=== PATIENT | female | born 1990 | race Caucasian/White ===

== ENCOUNTER 2017-10-27 10:22 | Emergency (ER) | payer OTHER, MEDICAID ==
[2017-10-27] MEDS: NS 1,000 ML IV (10:53)
[2017-10-27] MEDS: ONDANSETRON 4MG/2ML VIAL (J2405) IV (10:53)
[2017-10-27] MEDS: MORPHINE 4 MG/ML 1ML VIAL/SYRINGE (J2270) IV ×2 (10:53→12:13)
[2017-10-27 10:54] LABS: BASO # 0.1 10^3/uL (0.0-0.2); BASO % 0.6 % (0.0-1.0); EOS # 0.1 10^3/uL (0.0-0.50); EOS % 0.6 % (0.0-3.0); HEMATOCRIT 38.7 % (36.0-47.0); HEMOGLOBIN 13.6 g/dl (12.0-15.5); IMMATURE GRANULOCYTE % 0.3 % (0-3.0); LYMPH # 1.3 10^3/uL (1.5-6.5); LYMPH % 14.5 % (24.0-44.0); MEAN CORPUSCULAR HEMOGLOBIN 32.6 pg (27.0-33.0); MEAN CORPUSCULAR HGB CONC 35.1 g/dl (32.0-36.5); MEAN CORPUSCULAR VOLUME 92.8 fl (80.0-96.0); MONO # 0.6 10^3/uL (0.0-0.8); MONO % 6.6 % (0.0-5.0); NEUTROPHILS % 77.4 % (36.0-66.0); PLATELET COUNT, AUTOMATED 190 10^3/uL (150-450); RED BLOOD COUNT 4.17 10^6/uL (4.00-5.40); RED CELL DISTRIBUTION WIDTH 11.9 % (11.5-14.5)
[2017-10-27 11:04] LABS: AMORPHOUS SEDIMENT RFX SMALL (NEGATIVE); KETONE, URINE AUTO RFX NEGATIVE (NEGATIVE); LEUKOCYTE ESTERASE UR AUTO RFX 3+ (NEGATIVE); MUCUS, URINE RFX SMALL (NEGATIVE); NITRITE, URINE AUTO RFX POSITIVE (NEGATIVE); RBC, URINE AUTO RFX 8 /HPF (0-3); SPECIFIC GRAVITY UR AUTO RFX 1.014 (1.002-1.035); SQUAM EPITHELIAL CELL UR AURFX 6 /HPF (0-6); WBC, URINE AUTO RFX 67 /HPF (0-3); YEAST LIKE CELL URINE AUTO RFX MODERATE
[2017-10-27 11:19] LABS: ALBUMIN 3.7 GM/DL (3.2-5.2); ALBUMIN/GLOBULIN RATIO 1.16 (1.00-1.93); ALKALINE PHOSPHATASE 65 U/L (45-117); ALT/SGPT 12 U/L (12-78); ANION GAP 7 MEQ/L (8-16); AST/SGOT 11 U/L (7-37); BILIRUBIN,DIRECT 0.1 MG/DL (0.0-0.2); BILIRUBIN,TOTAL 0.3 MG/DL (0.2-1.0); BLOOD UREA NITROGEN 9 MG/DL (7-18); CALCIUM LEVEL 8.4 MG/DL (8.5-10.1); CARBON DIOXIDE LEVEL 26 MEQ/L (21-32); CHLORIDE LEVEL 108 MEQ/L (98-107); CREATININE FOR GFR 0.65 MG/DL (0.55-1.30); GLOMERULAR FILTRATION RATE > 60.0 (>60); GLUCOSE, FASTING 93 MG/DL (70-100); LIPASE 161 U/L (73-393); POTASSIUM SERUM 3.9 MEQ/L (3.5-5.1); SODIUM LEVEL 141 MEQ/L (136-145); TOTAL PROTEIN 6.9 GM/DL (6.4-8.2)
[2017-10-27] MEDS: CIPROFLOXACIN 500 MG TAB PO (13:36)
== END 2017-10-27 13:39 | disposition home or self-care (01) ==
LOC: M ED 10:22
DX: N39.0 Urinary tract infection, site not specified (principal); R11.0 Nausea; R93.8 Abnormal findings on diagnostic imaging of other specified body structures; Z87.440 Personal history of urinary (tract) infections; K58.9 Irritable bowel syndrome, unspecified; Z88.0 Allergy status to penicillin; Z97.5 Presence of (intrauterine) contraceptive device
CPT/HCPCS: J2270

== ENCOUNTER 2018-05-19 09:37 | Emergency (ER) | payer OTHER ==
[2018-05-19] MEDS: NS 1,000 ML IV (10:31)
[2018-05-19] MEDS: MORPHINE 4 MG/ML 1ML VIAL/SYRINGE (J2270) IV (10:31)
[2018-05-19] MEDS: ONDANSETRON 4MG/2ML VIAL (J2405) IV (10:31)
[2018-05-19 10:35] LABS: AMORPHOUS SEDIMENT RFX SMALL (NEGATIVE); BASO % 0.3 % (0.0-1.0); EOS % 0.3 % (0.0-3.0); HEMATOCRIT 44.9 % (36.0-47.0); HEMOGLOBIN 15.5 g/dl (12.0-15.5); IMMATURE GRANULOCYTE % 0.3 % (0-3.0); KETONE, URINE AUTO RFX NEGATIVE (NEGATIVE); LEUKOCYTE ESTERASE UR AUTO RFX 1+ (NEGATIVE); LYMPH # 0.9 10^3/uL (1.5-6.5); LYMPH % 7.4 % (24.0-44.0); MEAN CORPUSCULAR HEMOGLOBIN 32.5 pg (27.0-33.0); MEAN CORPUSCULAR HGB CONC 34.5 g/dl (32.0-36.5); MEAN CORPUSCULAR VOLUME 94.1 fl (80.0-96.0); MONO # 0.5 10^3/uL (0.0-0.8); MUCUS, URINE RFX SMALL (NEGATIVE); NEUTROPHILS # 10.2 10^3/uL (1.8-7.7); NEUTROPHILS % 87.7 % (36.0-66.0); NITRITE, URINE AUTO RFX NEGATIVE (NEGATIVE); PLATELET COUNT, AUTOMATED 228 10^3/uL (150-450); RBC, URINE AUTO RFX 1 /HPF (0-3); RED BLOOD COUNT 4.77 10^6/uL (4.00-5.40); RED CELL DISTRIBUTION WIDTH 11.9 % (11.5-14.5); SPECIFIC GRAVITY UR AUTO RFX 1.026 (1.002-1.035); SQUAM EPITHELIAL CELL UR AURFX 4 /HPF (0-6); WBC, URINE AUTO RFX 6 /HPF (0-3); WHITE BLOOD COUNT 11.6 10^3/uL (4.0-10.0)
[2018-05-19 11:06] LABS: ALBUMIN 4.4 GM/DL (3.2-5.2); ALBUMIN/GLOBULIN RATIO 1.33 (1.00-1.93); ALKALINE PHOSPHATASE 59 U/L (45-117); ALT/SGPT 15 U/L (12-78); ANION GAP 6 MEQ/L (8-16); AST/SGOT 11 U/L (7-37); BILIRUBIN,DIRECT 0.2 MG/DL (0.0-0.2); BILIRUBIN,TOTAL 0.7 MG/DL (0.2-1.0); BLOOD UREA NITROGEN 11 MG/DL (7-18); CARBON DIOXIDE LEVEL 28 MEQ/L (21-32); CHLORIDE LEVEL 104 MEQ/L (98-107); GLOMERULAR FILTRATION RATE > 60.0 (>60); GLUCOSE, FASTING 92 MG/DL (70-100); LIPASE 90 U/L (73-393); POTASSIUM SERUM 3.5 MEQ/L (3.5-5.1); SODIUM LEVEL 138 MEQ/L (136-145); TOTAL PROTEIN 7.7 GM/DL (6.4-8.2)
[2018-05-19] MEDS ORDERED: ISOVUE-370 76% 100ML VIAL (Q9967) As Ordered (11:16)
[2018-05-19] MEDS: METOCLOPRAMIDE INJ 10MG/2ML VIAL (J2765) IV (12:09)
== END 2018-05-19 12:35 | disposition home or self-care (01) ==
LOC: M ED 09:37
DX: K52.9 Noninfective gastroenteritis and colitis, unspecified (principal); N83.202 Unspecified ovarian cyst, left side
CPT/HCPCS: J2270

== ENCOUNTER → 2019-02-10 | Outpatient (CLI) | payer OTHER ==
[~2019-02-10] MED LIST: ANUS2.5C2 PR; CIPR-249 PO; COLA50CA3 PO; HYDR-3715 PO; IBUP600T26 PO; MAPA500T17 PO; MILK10SU PO; MIRE1IUD IU; MOTR200T44 PO; PRENTAB74 PO; TYLE325T5 PO; ZOFR4TAB14 PO
[2019-02-10 17:07] LABS: BASO # 0.1 10^3/uL (0.0-0.2); EOS # 0.2 10^3/uL (0.0-0.50); EOS % 2.9 % (0.0-3.0); HEMATOCRIT 45.2 % (36.0-47.0); LYMPH # 2.8 10^3/uL (1.5-6.5); LYMPH % 36.9 % (24.0-44.0); MEAN CORPUSCULAR HEMOGLOBIN 32.2 pg (27.0-33.0); MEAN CORPUSCULAR HGB CONC 33.2 g/dl (32.0-36.5); MONO # 0.7 10^3/uL (0.0-0.8); MONO % 9.2 % (0.0-5.0); NEUTROPHILS # 3.8 10^3/uL (1.8-7.7); NEUTROPHILS % 49.7 % (36.0-66.0); PLATELET COUNT, AUTOMATED 266 10^3/uL (150-450); RED BLOOD COUNT 4.66 10^6/uL (4.00-5.40); WHITE BLOOD COUNT 7.7 10^3/uL (4.0-10.0)
[2019-02-10 17:22] LABS: ALBUMIN 4.1 GM/DL (3.2-5.2); ALT/SGPT 17 U/L (12-78); BILIRUBIN,TOTAL 0.6 MG/DL (0.2-1.0); BLOOD UREA NITROGEN 14 MG/DL (7-18); CARBON DIOXIDE LEVEL 30 MEQ/L (21-32); CHLORIDE LEVEL 103 MEQ/L (98-107); CREATININE FOR GFR 0.78 MG/DL (0.55-1.30); GLOMERULAR FILTRATION RATE > 60.0 (>60); GLUCOSE, FASTING 61 MG/DL (70-100); POTASSIUM SERUM 4.3 MEQ/L (3.5-5.1); SODIUM LEVEL 140 MEQ/L (136-145); TOTAL PROTEIN 7.4 GM/DL (6.4-8.2)
[2019-02-10 21:09] LABS: CHLAMYDIA DNA AMPLIFICATION NEGATIVE (NEGATIVE); GC DNA AMPLIFICATION NEGATIVE (NEGATIVE)
--- NOTE | 2019-02-11 08:16 | REP ---
REASON: Dysuria. COMPARISON: Abdominal series of 12/14/2010. FINDINGS: KUB shows the intestinal gas pattern to be nonspecific. The organ silhouettes insofar as delineated are unremarkable. There is no evidence of free intraperitoneal air. There is a pelvic radiodensity consistent with an IUD. IMPRESSION: Nonspecific. Electronically Signed by Evan Fraser DO 02/11/2019 09:45 A
== END ==
LOC: M WUC 14:56
PROVIDERS: ATTEND Physician Assistant
DX: R30.0 Dysuria (principal); R10.30 Lower abdominal pain, unspecified; Z97.5 Presence of (intrauterine) contraceptive device

== ENCOUNTER → 2019-06-10 | Outpatient (REF) | payer OTHER | LOC: M LAB REF 16:10 | PROVIDERS: ATTEND Physician Assistant | DX: N39.0 Urinary tract infection, site not specified (principal) ==

== ENCOUNTER 2019-09-03 15:17 | Emergency (ER) | payer OTHER ==
[~2019-09-03] VITALS: Ht 165.1 cm; Wt 57.0 kg
[2019-09-03 16:35] LABS: BASO # 0.1 10^3/uL (0.0-0.2); BASO % 0.8 % (0.0-1.0); EOS # 0.3 10^3/uL (0.0-0.5); EOS % 3.9 % (0.0-3.0); HEMATOCRIT 41.4 % (36.0-47.0); HEMOGLOBIN 13.8 g/dl (12.0-15.5); LYMPH # 2.5 10^3/uL (1.5-5.0); LYMPH % 35.4 % (24.0-44.0); MEAN CORPUSCULAR HEMOGLOBIN 31.6 pg (27.0-33.0); MEAN CORPUSCULAR HGB CONC 33.3 g/dl (32.0-36.5); MEAN CORPUSCULAR VOLUME 94.7 fl (80.0-96.0); MONO # 0.4 10^3/uL (0.0-0.8); MONO % 5.2 % (0.0-5.0); NEUTROPHILS # 3.9 10^3/uL (1.5-8.5); NEUTROPHILS % 54.4 % (36.0-66.0); PLATELET COUNT, AUTOMATED 246 10^3/uL (150-450); RED BLOOD COUNT 4.37 10^6/uL (4.00-5.40); WHITE BLOOD COUNT 7.1 10^3/uL (4.0-10.0)
[2019-09-03 16:59] LABS: ERYTHROCYTE SEDIMENTATION RATE 1 mm/hr (0-20)
[2019-09-03 17:18] VITALS: BP 134/78
== END 2019-09-03 17:10 | disposition home or self-care (01) ==
LOC: M ED 15:17
DX: N64.4 Mastodynia (principal); Z97.5 Presence of (intrauterine) contraceptive device; Z88.0 Allergy status to penicillin

== ENCOUNTER 2019-11-26 11:51 | Emergency (ER) | payer OTHER ==
[~2019-11-26] VITALS: Ht 165.1 cm; Wt 56.5 kg
[2019-11-26 12:37] LABS: BASO # 0.1 10^3/uL (0.0-0.2); BASO % 0.7 % (0.0-1.0); EOS # 0.2 10^3/uL (0.0-0.5); EOS % 2.2 % (0.0-3.0); HEMATOCRIT 40.2 % (36.0-47.0); HEMOGLOBIN 13.6 g/dl (12.0-15.5); LYMPH % 29.3 % (24.0-44.0); MEAN CORPUSCULAR HEMOGLOBIN 32.2 pg (27.0-33.0); MEAN CORPUSCULAR HGB CONC 33.8 g/dl (32.0-36.5); MONO # 0.5 10^3/uL (0.0-0.8); MONO % 7.2 % (0.0-5.0); NEUTROPHILS # 4.1 10^3/uL (1.5-8.5); NEUTROPHILS % 60.3 % (36.0-66.0); PLATELET COUNT, AUTOMATED 215 10^3/uL (150-450); RED BLOOD COUNT 4.23 10^6/uL (4.00-5.40); WHITE BLOOD COUNT 6.9 10^3/uL (4.0-10.0)
[2019-11-26 12:58] LABS: ALBUMIN 3.6 GM/DL (3.2-5.2); BILIRUBIN,DIRECT 0.1 MG/DL (0.0-0.2); BILIRUBIN,TOTAL 0.5 MG/DL (0.2-1.0); TOTAL PROTEIN 6.6 GM/DL (6.4-8.2)
[2019-11-26] MEDS ORDERED: KETOROLAC 30 MG/ML 1ML VIAL IV ONE (13:00)
[2019-11-26] MEDS ORDERED: ISOVUE-370 76% 100ML VIAL As Ordered ONE (13:32)
[2019-11-26] MEDS ORDERED: PHENAZOPYRIDINE 100 MG TAB PO ONE (14:30)
[2019-11-26] MEDS ORDERED: CIPROFLOXACIN 500MG TABLET PO ONE (14:30)
[2019-11-26] MEDS ORDERED: PYRI1TAB5 PO (14:32)
[2019-11-26] MEDS ORDERED: KETO10TAB PO (14:32)
[2019-11-26] MEDS ORDERED: CIPR-249 PO (14:32)
--- NOTE | 2019-11-26 14:42 | REP ---
CT ABDOMEN AND PELVIS WITH IV CONTRAST: TECHNIQUE: Axial contrast-enhanced images from the lung bases to the pubic symphysis using 100 mL Isovue-370 intravenous contrast material with multiplanar reformations. Visualized lung bases are clear. Liver, spleen, adrenals, pancreas and kidneys are grossly unremarkable. Gallbladder is grossly unremarkable. There is no abdominal aortic aneurysm. There is no adenopathy. There is no free air. No bowel wall thickening is seen. The appendix is normal. IUD is seen in the uterus. No adnexal mass is seen. There is mild free fluid in the pelvis which is likely physiologic in nature. Urinary bladder is mildly distended and grossly unremarkable. IMPRESSION: Mild free fluid in the pelvis is likely physiologic in nature. Normal appendix. IUD in the uterus. No other acute finding. Electronically Signed by Navdeep Calvo MD 11/26/2019 05:05 P
[2019-11-26 15:01] VITALS: BP 116/58
== END 2019-11-26 15:02 | disposition home or self-care (01) ==
LOC: M ED 11:51
DX: N30.00 Acute cystitis without hematuria (principal); Z87.440 Personal history of urinary (tract) infections; K58.9 Irritable bowel syndrome, unspecified; N93.8 Other specified abnormal uterine and vaginal bleeding; F32.9 Major depressive disorder, single episode, unspecified; Z88.0 Allergy status to penicillin
CPT/HCPCS: 36415; 74177; 80047; 80076; 81001; 83690; 84702; 85025; 87088; 87186; 96374; 99284; J1885; Q9967

== ENCOUNTER 2019-11-28 10:46 | Emergency (ER) | payer OTHER ==
[~2019-11-28] VITALS: Ht 165.1 cm; Wt 57.5 kg
[~2019-11-28 10:46] MED LIST changes: +KETO10TAB PO; +PYRI1TAB5 PO
[2019-11-28 11:25] LABS: BASO % 0.8 % (0.0-1.0); EOS # 0.1 10^3/uL (0.0-0.5); EOS % 2.2 % (0.0-3.0); HEMATOCRIT 38.6 % (36.0-47.0); HEMOGLOBIN 12.8 g/dl (12.0-15.5); LYMPH # 1.6 10^3/uL (1.5-5.0); LYMPH % 31.7 % (24.0-44.0); MEAN CORPUSCULAR HEMOGLOBIN 31.9 pg (27.0-33.0); MEAN CORPUSCULAR HGB CONC 33.2 g/dl (32.0-36.5); MEAN CORPUSCULAR VOLUME 96.3 fl (80.0-96.0); MONO # 0.3 10^3/uL (0.0-0.8); MONO % 6.7 % (0.0-5.0); NEUTROPHILS # 2.9 10^3/uL (1.5-8.5); NEUTROPHILS % 58.2 % (36.0-66.0); PLATELET COUNT, AUTOMATED 186 10^3/uL (150-450); RED BLOOD COUNT 4.01 10^6/uL (4.00-5.40); WHITE BLOOD COUNT 5.1 10^3/uL (4.0-10.0)
[2019-11-28 11:58] LABS: ALBUMIN 3.4 GM/DL (3.2-5.2); ALT/SGPT 27 U/L (12-78); BILIRUBIN,DIRECT < 0.1 MG/DL (0.0-0.2); BILIRUBIN,TOTAL 0.5 MG/DL (0.2-1.0); BLOOD UREA NITROGEN 11 MG/DL (7-18); CALCIUM LEVEL 8.3 MG/DL (8.5-10.1); CARBON DIOXIDE LEVEL 28 MEQ/L (21-32); CHLORIDE LEVEL 110 MEQ/L (98-107); CREATININE FOR GFR 0.62 MG/DL (0.55-1.30); GLOMERULAR FILTRATION RATE > 60.0 (>60); GLUCOSE, FASTING 81 MG/DL (70-100); LIPASE 78 U/L (73-393); POTASSIUM SERUM 3.8 MEQ/L (3.5-5.1); SODIUM LEVEL 140 MEQ/L (136-145); TOTAL PROTEIN 6.2 GM/DL (6.4-8.2)
[2019-11-28] MEDS: GI COCKTAIL 50ML BTL(HYOSCYAMINE/MAALOX/LIDOCAINE VISCOUS)(1:3:1) PO ONE (12:24)
[2019-11-28 14:46] VITALS: BP 92/58
[2019-11-28 15:42] LABS: CK-MB VALUE MASS < 1.0 NG/ML (<3.6); CPK CREATINE PHOSPHOKINASE 51 U/L (26-192); MB/CK RELATIVE INDEX 1.96 (< OR =4); TROPONIN I < 0.02 NG/ML (< 0.10)
[2019-11-28] MEDS ORDERED: OMEP-218 PO (15:50)
--- NOTE | 2019-11-29 07:18 | REP ---
RIGHT UPPER QUADRANT ULTRASOUND: Real-time sonographic evaluation of right upper quadrant performed. Gallbladder demonstrates no evidence of intraluminal sludge or calculi, wall thickening, or pericholecystic fluid. Gallbladder is mildly contracted as the patient is not n.p.o. There is no intrahepatic or extrahepatic biliary dilatation, common bile duct measuring 3 mm. Liver and pancreas demonstrate no gross abnormality. Pancreas is not well seen due to overlying bowel gas. Right kidney demonstrates no hydronephrosis with normal size 12.2 cm in length. IMPRESSION: Negative right upper quadrant ultrasound. Electronically Signed by Navdeep Calvo MD 11/29/2019 09:49 A
--- NOTE | 2019-11-29 19:43 | ECGEPIP ---
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
== END 2019-11-28 16:01 | disposition home or self-care (01) ==
LOC: M ED 10:46
DX: K21.9 Gastro-esophageal reflux disease without esophagitis (principal); I44.0 Atrioventricular block, first degree; K58.9 Irritable bowel syndrome, unspecified; F32.9 Major depressive disorder, single episode, unspecified; Z88.1 Allergy status to other antibiotic agents; Z79.899 Other long term (current) drug therapy

== ENCOUNTER 2020-05-04 18:57 | Emergency (ER) | payer OTHER ==
[~2020-05-04] VITALS: Ht 165.1 cm; Wt 53.6 kg
[~2020-05-04 18:57] MED LIST changes: +OMEP-218 PO
[2020-05-04] MEDS ORDERED: NS 1,000 ML IV ONE (20:45)
[2020-05-04 20:54] LABS: BASO % 0.6 % (0.0-1.0); EOS # 0.2 10^3/uL (0.0-0.5); EOS % 2.3 % (0.0-3.0); HEMATOCRIT 40.8 % (36.0-47.0); HEMOGLOBIN 13.3 g/dl (12.0-15.5); LYMPH # 2.7 10^3/uL (1.5-5.0); LYMPH % 41.6 % (24.0-44.0); MEAN CORPUSCULAR HEMOGLOBIN 30.9 pg (27.0-33.0); MEAN CORPUSCULAR HGB CONC 32.6 g/dl (32.0-36.5); MEAN CORPUSCULAR VOLUME 94.9 fl (80.0-96.0); MONO # 0.4 10^3/uL (0.0-0.8); MONO % 6.8 % (0.0-5.0); NEUTROPHILS # 3.1 10^3/uL (1.5-8.5); NEUTROPHILS % 48.5 % (36.0-66.0); PLATELET COUNT, AUTOMATED 231 10^3/uL (150-450); WHITE BLOOD COUNT 6.5 10^3/uL (4.0-10.0)
--- NOTE | 2020-05-04 21:08 | REPVR ---
PROCEDURE INFORMATION: Exam: XR Abdomen, 1 View Exam date and time: 05/04/2020 8:51 PM Age: 29 years old Clinical indication: Other: Constipation; Additional info: Constipation, concern for free air/obstruction TECHNIQUE: Imaging protocol: XR of the abdomen. Views: Frontal supine view of the abdomen. 1 View. COMPARISON: CT ABD/PEL W/IV CONTRAST ONLY 11/26/2019 1:36 PM FINDINGS: Gastrointestinal tract: There is gas throughout the colon. Intraperitoneal space: Pneumoperitoneum cannot be seen in the usual location of the right hemidiaphragm. There is a lucent area in the upper abdomen and probably gas-filled loops of bowel. To exclude any possibility of pathology recommend correlation with a CT scan with oral contrast. Organs: An IUD is identified mid pelvis. Bones/joints: The pedicles are visualized bilaterally. IMPRESSION: Lucency in the upper abdomen may be gas-filled loops of small bowel, however to exclude any possibility of pathology recommend CT scan with oral contrast. Electronically signed by: Luis Peres On 05/04/2020 21:08:12 PM
[2020-05-04 21:35] LABS: ALBUMIN 3.5 GM/DL (3.2-5.2); ALT/SGPT 14 U/L (12-78); BILIRUBIN,DIRECT < 0.1 MG/DL (0.0-0.2); BILIRUBIN,TOTAL 0.3 MG/DL (0.2-1.0); LIPASE 212 U/L (73-393); TOTAL PROTEIN 6.3 GM/DL (6.4-8.2)
[2020-05-04] MEDS ORDERED: ONDANSETRON 4MG/2ML VIAL IV ONE (21:45)
[2020-05-04] MEDS: GASTROGRAFIN SOLUTION 30ML PO SCH ×2 (22:45→23:49)
[2020-05-04] MEDS ORDERED: ISOVUE-370 76% 100ML VIAL As Ordered ONE (23:21)
--- NOTE | 2020-05-05 00:10 | REPVR ---
PROCEDURE INFORMATION: Exam: CT Abdomen And Pelvis With Contrast Exam date and time: 05/04/2020 9:35 PM Age: 29 years old Clinical indication: Abdominal pain; Other: Diffuse; Patient HX: Lucency seen; Additional info: Lucency seen in upper abdomen, n, v diffuse abd pain TECHNIQUE: Imaging protocol: Computed tomography of the abdomen and pelvis with intravenous contrast. Radiation optimization: All CT scans at this facility use at least one of these dose optimization techniques: automated exposure control; mA and/or kV adjustment per patient size (includes targeted exams where dose is matched to clinical indication); or iterative reconstruction. Contrast material: ISO; Contrast volume: 100 ml; Contrast route: INTRAVENOUS (IV); Other contrast: Oral, ggraphin, 600; COMPARISON: CT ABD/PEL W/IV CONTRAST ONLY 2019-11-26 13:36 FINDINGS: Liver: Normal. No mass. Gallbladder and bile ducts: Normal. No calcified stones. No ductal dilation. Pancreas: Normal. No ductal dilation. Spleen: Normal. No splenomegaly. Adrenal glands: Normal. No mass. Kidneys and ureters: Normal. No hydronephrosis. Stomach and bowel: Lucency on the recent radiograph corresponds to normal bowel, and diaphragmatic curvature. Gastric distension. Appendix: No evidence of appendicitis. Intraperitoneal space: Unremarkable. No free air. No significant fluid collection. Vasculature: Unremarkable. No abdominal aortic aneurysm. Lymph nodes: Unremarkable. No enlarged lymph nodes. Urinary bladder: Unremarkable as visualized. Reproductive: Intrauterine device appears appropriately positioned. Uterus appears slightly rotated. Bones/joints: Unremarkable. No acute fracture. Soft tissues: Unremarkable. IMPRESSION: Lucency on the recent radiograph corresponds to normal bowel, and diaphragmatic curvature. Electronically signed by: Jose Luis On 05/05/2020 00:10:27 AM
[2020-05-05 00:20] VITALS: BP 108/73
[2020-05-07] MEDS ORDERED: MACR100C43 PO (08:12)
== END 2020-05-05 00:47 | disposition home or self-care (01) ==
LOC: M ED 18:57
DX: R10.9 Unspecified abdominal pain (principal); R11.2 Nausea with vomiting, unspecified; K58.9 Irritable bowel syndrome, unspecified; Z88.0 Allergy status to penicillin; Z97.5 Presence of (intrauterine) contraceptive device
CPT/HCPCS: 74018; 74177; 80047; 80076; 81001; 83690; 84702; 85025; 87088; 87186; 96361; 96374; 99284; J2405; Q9963; Q9967

== ENCOUNTER 2022-02-23 23:39 | Emergency (ER) | payer OTHER ==
[~2022-02-23] VITALS: Ht 165.1 cm; Wt 56.8 kg
[~2022-02-23 23:39] MED LIST changes: +MACR100C43 PO; +OMEP-173 PO; -OMEP-218 PO
[2022-02-23 23:40] VITALS: BP 111/80
== END 2022-02-23 23:56 | disposition left against medical advice (07) ==
LOC: M ED 23:39
DX: Z53.29 Procedure and treatment not carried out because of patient's decision for other reasons (principal)

== ENCOUNTER 2022-03-15 08:44 | Emergency (ER) | payer OTHER ==
[~2022-03-15] VITALS: Ht 165.1 cm; Wt 56.8 kg
[2022-03-15] MEDS ORDERED: PERCOCET 5MG/325MG TAB PO ONE (09:30)
[2022-03-15] MEDS ORDERED: NEOSPORIN OINT 0.9 GM PKT TOP ONE (09:30)
[2022-03-15] MEDS ORDERED: LIDOCAINE 1% MDV 20ML VIAL SC ONE (09:30)
[2022-03-15] MEDS ORDERED: CEFU50TA PO (11:52)
[2022-03-15] MEDS ORDERED: HYDR-3713 PO (11:52)
[2022-03-15] MEDS ORDERED: BACI500O8 TOP (11:52)
[2022-03-15] MEDS ORDERED: METR-265 PO (11:52)
[2022-03-15 12:21] VITALS: BP 106/64
== END 2022-03-15 14:33 | disposition home or self-care (01) ==
LOC: EDBD 08:44 → M ED 08:44
DX: S61.051A Open bite of right thumb without damage to nail, initial encounter (principal); S81.851A Open bite, right lower leg, initial encounter; S51.851A Open bite of right forearm, initial encounter; W54.0XXA Bitten by dog, initial encounter; Z88.1 Allergy status to other antibiotic agents

== ENCOUNTER → 2024-05-12 | Outpatient (CLI) | payer OTHER ==
[~2024-05-12] MED LIST changes: +BACI500O8 TOP; +CEFU50TA PO; +HYDR-3713 PO; +METR-265 PO
== END ==
LOC: M WHC 09:21
PROVIDERS: ATTEND Physician Assistant
DX: N63.15 Unspecified lump in the right breast, overlapping quadrants (principal); R92.333 Mammographic heterogeneous density, bilateral breasts